=== PATIENT | female | born 1965 | race Caucasian/White ===

== ENCOUNTER → 2017-01-16 | Outpatient (CLI) | payer BC ==
[2017-01-16 09:42] LABS: BUN 8 mg/dL (7-18)
[2017-01-16 09:47] LABS: GFR (ESTIMATED) 105 ML/MIN (59-)
== END ==
LOC: LAB 08:33
PROVIDERS: Internal Medicine Adolescent Medicine
DX: E11.9 Type 2 diabetes mellitus without complications (principal)

== ENCOUNTER → 2017-04-16 | Outpatient (CLI) | payer BC ==
[2017-04-16 12:38] LABS: BUN 14 mg/dL (7-18)
[2017-04-16 12:47] LABS: GFR (ESTIMATED) 88 ML/MIN (59-)
== END ==
LOC: LAB 11:20
PROVIDERS: Internal Medicine Adolescent Medicine
DX: E11.9 Type 2 diabetes mellitus without complications (principal)

== ENCOUNTER → 2017-04-17 | Outpatient (CLI) | payer BC ==
--- NOTE | 2017-04-19 14:55 | RADIOLOGY REPORT PS360 ---
DIG MAMM-SCREEN SEGUN W/CAD CAD Screening COMPARISON: Digital mammograms 08/02/2011 and 01/21/2016 INDICATION: There is a history of breast cancer patient's mother and maternal grandmother both after menopause. TECHNIQUE: Standard CC and MLO images were obtained. R2 CAD reviewed. FINDINGS: The patient has a frozen left shoulder making positioning difficult for imaging of the left breast. Scattered fiber glandular densities are seen throughout both breasts. There is a mole marker right breast. There is arterial calcification in each breast. There is no suspicious lesion and there are no suspicious microcalcifications. There are small nodes both axilla. IMPRESSION: Stable exam with no suspicious lesion seen recommend yearly follow-up BI-RADS CATEGORY: 2_Benign RECOMMENDED FOLLOWUP: 12M 12 MONTH FOLLOW-UP (A letter has been sent to the patient regarding results of the study.)
== END ==
LOC: RAD 08:53
DX: Z12.31 Encounter for screening mammogram for malignant neoplasm of breast (principal)
CPT/HCPCS: G0202